=== PATIENT | female | born 1995 | race Caucasian/White ===

== ENCOUNTER 2021-09-11 14:05 | Emergency (ER) | payer MEDICAID ==
[~2021-09-11] VITALS: Ht 172.7 cm; Wt 86.2 kg
--- NOTE | 2021-09-11 14:40 | NUR ---
ER in triage examining patient.
[2021-09-11 15:07] VITALS: BP_SYST 131
--- NOTE | 2021-09-11 15:13 | NUR ---
Triaged pt and placed in waiting room until bed becomes available. Pt c/o vaginal bleeding and abdominal pain x3 months. Rates abdominal pain 10/10 intermittent. Pt is A&Ox4. Skin intact. VSS. Ambulatory with steady gait coming from home. No chest pain and no sob. Denies n/v. NKA. No known medical conditions.
[2021-09-11 15:21] LABS: BASOPHILS % (AUTO) 1.2 % (0.0-2.0); EOSINOPHILS % (AUTO) 1.1 % (0.0-4.0); HEMATOCRIT 41.7 % (36-48); HEMOGLOBIN 14.1 g/dL (12.0-16.0); LYMPHOCYTES # (AUTO) 0.9 K/uL (1.0-5.5); LYMPHOCYTES % (AUTO) 25.3 % (20.5-51.5); MEAN CORPUSCULAR HEMOGLOBIN 31 pg (27-31); MEAN CORPUSCULAR HGB CONC 34 % (32-36); MEAN CORPUSCULAR VOLUME 92 fL (79.0-98.0); MONOCYTES # (AUTO) 0.3 K/uL (0.0-1.0); MONOCYTES % (AUTO) 7.6 % (1.7-9.3); NEUTROPHILS # (AUTO) 2.4 K/uL (1.8-7.7); NEUTROPHILS % (AUTO) 64.8 % (40.0-70.0); PLATELET COUNT (AUTO) 223 K/uL (130-430); RED BLOOD CELL COUNT(AUTO) 4.55 MIL/uL (4.2-6.2); RED CELL DISTRIBUTION WIDTH 12.3 % (9.0-15.0); WHITE BLOOD COUNT (AUTO) 3.7 K/uL (4.8-10.8)
[2021-09-11 15:32] LABS: CREATININE 0.75 mg/dL (0.55-1.30); POTASSIUM 3.8 mmol/L (3.5-5.1)
--- NOTE | 2021-09-11 15:37 | NUR ---
Urine collected and sent to lab.
--- NOTE | 2021-09-11 15:39 | NUR ---
Urine done and results were positive.
[2021-09-11 15:44] LABS: ALBUMIN 3.1 g/dL (3.4-4.8); TOTAL BILIRUBIN 0.5 mg/dL (0.0-1.0)
[2021-09-11 15:51] LABS: BILIRUBIN,URINE NEGATIVE (NEGATIVE); BLOOD, URINE 3+ (NEGATIVE); CLARITY/URINE CLEAR (CLEAR); COLOR,URINE YELLOW (YELLOW); GLUCOSE,URINE NEGATIVE (NEGATIVE); KETONES,URINE NEGATIVE (NEGATIVE); LEUKOCYTE ESTERASE ,URINE TRACE (NEGATIVE); NITRITE, URINE NEGATIVE (NEGATIVE); PROTEIN URINE NEGATIVE (NEGATIVE); UROBILINOGEN,URINE 0.2 (0.2-1.0)
[2021-09-11 16:03] LABS: BACTERIA,URINE FEW /HPF (None Seen); MUCUS,URINE None Seen /LPF (None Seen); RBC,URINE NONE SEEN /HPF (0-3)
[2021-09-11] MEDS ORDERED: cephALEXin 500 MG CAPSULE PO ONE ×2 (16:15→17:15)
[2021-09-11] MEDS ORDERED: CEPH-548 PO (19:01)
[2021-09-11 19:15] VITALS: BP_SYST 131
--- NOTE | 2021-09-11 19:15 | NUR ---
Patient given written and verbal discharge instructions and verbalizes understanding. ER Dr. Landa discussed with patient the results and treatment provided. Patient in stable condition. ID arm band removed. Rx of cephalexin given. Patient educated on pain management and to follow up with PMD. Pain Scale 0. Opportunity for questions provided and answered. Medication side effect fact sheet provided.
== END 2021-09-11 19:15 | disposition home or self-care (01) ==
LOC: SED 14:05
DX: O23.41 Unspecified infection of urinary tract in pregnancy, first trimester (principal); N39.0 Urinary tract infection, site not specified; I10 Essential (primary) hypertension; Z3A.09 9 weeks gestation of pregnancy; Z79.899 Other long term (current) drug therapy
CPT/HCPCS: 36415; 76856-TC; 80053; 81000; 81025; 83690; 84702; 85025; 86886; 86900; 86901; 99284

== ENCOUNTER 2022-03-12 22:25 | Inpatient (IN) | payer MEDICAID ==
[~2022-03-12] VITALS: Ht 172.7 cm; Wt 90.7 kg
[~2022-03-12 22:25] MED LIST: CEPH-548 PO
[2022-03-12 22:35] VITALS: BP_SYST 151
[2022-03-12] MEDS ORDERED: ONDANSETRON 4 MG ODT TAB PO ONE (23:30)
[2022-03-12] MEDS ORDERED: MORPHINE 4 MG INJ. 4 MG/ML VIAL IM ONE (23:30)
[2022-03-13] MEDS ORDERED: NACL 0.9% 1,000 ML IV ONE (01:45)
[2022-03-13] MEDS ORDERED: ONDANSETRON HCL 4 MG/2 ML VIAL IVP ONE (01:45)
[2022-03-13] MEDS ORDERED: MORPHINE 4 MG INJ. 4 MG/ML VIAL IVP ONE (01:45)
[2022-03-13 03:12] LABS: BASOPHILS % (AUTO) 0.6 % (0.0-2.0); EOSINOPHILS % (AUTO) 0.2 % (0.0-4.0); HEMATOCRIT 40.8 % (36-48); HEMOGLOBIN 14.3 g/dL (12.0-16.0); LYMPHOCYTES # (AUTO) 1.6 K/uL (1.0-5.5); LYMPHOCYTES % (AUTO) 23.4 % (20.5-51.5); MEAN CORPUSCULAR HEMOGLOBIN 32 pg (27-31); MEAN CORPUSCULAR HGB CONC 35 % (32-36); MEAN CORPUSCULAR VOLUME 92 fL (79.0-98.0); MONOCYTES # (AUTO) 0.6 K/uL (0.0-1.0); MONOCYTES % (AUTO) 8.9 % (1.7-9.3); NEUTROPHILS # (AUTO) 4.6 K/uL (1.8-7.7); NEUTROPHILS % (AUTO) 66.9 % (40.0-70.0); PLATELET COUNT (AUTO) 196 K/uL (130-430); RED BLOOD CELL COUNT(AUTO) 4.43 MIL/uL (4.2-6.2); RED CELL DISTRIBUTION WIDTH 12.2 % (9.0-15.0); WHITE BLOOD COUNT (AUTO) 6.9 K/uL (4.8-10.8)
[2022-03-13 03:27] LABS: CALCIUM 8.9 mg/dL (8.4-11.0); CREATININE 0.56 mg/dL (0.55-1.30)
[2022-03-13 03:31] LABS: ALBUMIN 3.6 g/dL (3.4-4.8); TOTAL BILIRUBIN 0.9 mg/dL (0.0-1.0)
[2022-03-13 03:39] LABS: PROTHROMBIN TIME 10.4 SECS (9.5-12.5)
[2022-03-13] MEDS ORDERED: MORPHINE 4 MG INJ. 4 MG/ML VIAL ONE (04:33)
[2022-03-13] MEDS ORDERED: ONDANSETRON HCL 4 MG/2 ML VIAL ONE (04:33)
[2022-03-13] MEDS ORDERED: D5NS 1,000 ML IV ONE (05:00)
[2022-03-13] MEDS ORDERED: ONDANSETRON HCL 4 MG/2 ML VIAL IVP PRN ×3 (05:00→17:15)
[2022-03-13] MEDS ORDERED: MORPHINE 2 MG/ML INJ. SYRINGE IVP PRN ×3 (05:00→08:15)
[2022-03-13 05:50] LABS: HCG,QUAL RESULT NEGATIVE (NEGATIVE)
[2022-03-13] MEDS ORDERED: MUPIROCIN 2% TOPICAL OINTMENT 22 GM NS PRN (08:15)
[2022-03-13] MEDS ORDERED: POTASSIUM CHLORIDE 20 MEQ TAB.PRT.SR PO PRN (08:15)
[2022-03-13] MEDS ORDERED: MAGNESIUM SULFATE 50 ML IV PRN (08:15)
[2022-03-13] MEDS ORDERED: DOCUSATE SODIUM 100 MG CAPSULE PO PRN (08:15)
[2022-03-13] MEDS ORDERED: NALOXONE HCL 0.4 MG/ML AMP (NARCAN) IVP PRN ×2 (08:15)
[2022-03-13] MEDS ORDERED: LORazepam 2 MG/ML VIAL IVP PRN (08:15)
[2022-03-13] MEDS ORDERED: ACETAMINOPHEN 325 MG TABLET PO PRN ×2 (08:15)
[2022-03-13] MEDS ORDERED: ZOLPIDEM TARTRATE 5 MG TABLET PO PRN (08:15)
[2022-03-13 09:03] VITALS: BP_SYST 126
[2022-03-13 09:43] VITALS: BP_SYST 126
[2022-03-13 10:43] LABS: BILIRUBIN,URINE NEGATIVE (NEGATIVE); BLOOD, URINE NEGATIVE (NEGATIVE); CLARITY/URINE CLEAR (CLEAR); COLOR,URINE YELLOW (YELLOW); GLUCOSE,URINE NEGATIVE (NEGATIVE); KETONES,URINE TRACE (NEGATIVE); LEUKOCYTE ESTERASE ,URINE NEGATIVE (NEGATIVE); NITRITE, URINE NEGATIVE (NEGATIVE); PROTEIN URINE NEGATIVE (NEGATIVE); UROBILINOGEN,URINE 0.2 (0.2-1.0)
[2022-03-13 12:00] VITALS: BP_SYST 143
[2022-03-13 16:00] VITALS: BP_SYST 118
[2022-03-13] MEDS ORDERED: fentaNYL CITRATE/PF 100 MCG/2 ML AMP IVP PRN ×2 (17:15)
[2022-03-13] MEDS ORDERED: METOCLOPRAMIDE HCL 10 MG/2 ML VIAL IVP PRN (17:15)
[2022-03-13] MEDS ORDERED: NS IRRIG SOLN 1000 ML IR ONE (19:00)
[2022-03-13] MEDS ORDERED: PROPOFOL 200MG/ 20ML VIAL (DIPRIVAN) IV ONE (19:00)
[2022-03-13] MEDS ORDERED: BUPIVACAINE /PF 0.5% 30 ML VIAL ONE (19:00)
[2022-03-13] MEDS ORDERED: LR 1,000 ML IV.SOLN IV ONE (19:00)
[2022-03-13] MEDS ORDERED: MIDAZOLAM HCL 5 MG/ML VIAL (VERSED) IV ONE (19:00)
[2022-03-13] MEDS ORDERED: CEFAZOLIN 2 GM IVPB PREMIX 50 ML IV ONE (19:00)
[2022-03-13] MEDS ORDERED: DOCU-144 PO (19:06)
[2022-03-13] MEDS ORDERED: IBUP-1971 PO (19:06)
[2022-03-13] MEDS ORDERED: HYDR-3917 PO (19:06)
[2022-03-13] MEDS ORDERED: ASPI-1393 PO (19:06)
[2022-03-13 20:00] VITALS: BP_SYST 125
[2022-03-13] MEDS: MORPHINE 2 MG/ML INJ. SYRINGE IVP PRN (23:30)
[2022-03-14 01:23] VITALS: BP_SYST 126
[2022-03-14] MEDS: MORPHINE 2 MG/ML INJ. SYRINGE IVP PRN ×2 (06:22→09:28)
[2022-03-14 07:05] LABS: BASOPHILS % (AUTO) 0.3 % (0.0-2.0); HEMATOCRIT 39.2 % (36-48); HEMOGLOBIN 13.7 g/dL (12.0-16.0); LYMPHOCYTES # (AUTO) 0.6 K/uL (1.0-5.5); MEAN CORPUSCULAR HEMOGLOBIN 32 pg (27-31); MEAN CORPUSCULAR HGB CONC 35 % (32-36); MEAN CORPUSCULAR VOLUME 92 fL (79.0-98.0); MONOCYTES # (AUTO) 0.6 K/uL (0.0-1.0); MONOCYTES % (AUTO) 8.3 % (1.7-9.3); NEUTROPHILS # (AUTO) 5.9 K/uL (1.8-7.7); NEUTROPHILS % (AUTO) 82.4 % (40.0-70.0); PLATELET COUNT (AUTO) 155 K/uL (130-430); RED BLOOD CELL COUNT(AUTO) 4.27 MIL/uL (4.2-6.2); RED CELL DISTRIBUTION WIDTH 12.3 % (9.0-15.0); WHITE BLOOD COUNT (AUTO) 7.1 K/uL (4.8-10.8)
[2022-03-14 07:42] VITALS: BP_SYST 142
[2022-03-14 08:20] LABS: CALCIUM 8.7 mg/dL (8.4-11.0); CREATININE 0.59 mg/dL (0.55-1.30)
[2022-03-14 11:21] VITALS: BP_SYST 129
[2022-03-14] MEDS ORDERED: HYDROcodone/ACETAMIN 10-325 MG TAB PO PRN (11:45)
[2022-03-14 16:22] VITALS: BP_SYST 124
[2022-03-14 18:41] VITALS: BP_SYST 133
[2022-03-14 20:25] VITALS: BP_SYST 125
[2022-03-15] MEDS ORDERED: ASPIRIN 81 MG TABLET(ECOTRIN) PO SCH (09:00)
== END 2022-03-14 20:15 | disposition home health service (06) | DRG 313 ==
LOC: SED 22:25 → SMU 03-13 04:50
PROVIDERS: ADMIT General Practice; ATTEND General Practice
PROC: 0QSH04Z Reposition Left Tibia with Internal Fixation Device, Open Approach (ICD-10-PCS; 2022-03-13)
PROC: BW1C1ZZ Fluoroscopy of Lower Extremity using Low Osmolar Contrast (ICD-10-PCS; 2022-03-13)
PROC: 0QSK04Z Reposition Left Fibula with Internal Fixation Device, Open Approach (ICD-10-PCS; principal; 2022-03-13 16:25)
PROC: 2W3RX1Z Immobilization of Left Lower Leg using Splint (ICD-10-PCS; 2022-03-14)
DX: S82.872A Displaced pilon fracture of left tibia, initial encounter for closed fracture (principal); R65.10 Systemic inflammatory response syndrome (SIRS) of non-infectious origin without acute organ dysfunction; S82.402A Unspecified fracture of shaft of left fibula, initial encounter for closed fracture; F17.290 Nicotine dependence, other tobacco product, uncomplicated; S82.852A Displaced trimalleolar fracture of left lower leg, initial encounter for closed fracture; G40.909 Epilepsy, unspecified, not intractable, without status epilepticus; Z20.822 Contact with and (suspected) exposure to COVID-19; Y93.01 Activity, walking, marching and hiking; W01.0XXA Fall on same level from slipping, tripping and stumbling without subsequent striking against object, initial encounter; Z79.2 Long term (current) use of antibiotics; Z79.899 Other long term (current) drug therapy; Y92.89 Other specified places as the place of occurrence of the external cause; Y99.8 Other external cause status
CPT/HCPCS: 1713; 36415; 73700-TC; 76001; 76376; 80048; 80053; 81003; 83036; 83735; 84703; 85025; 85610-TC; 85730-TC; 87081; 96361; 96374; 96375; 96376; 97163-GP; 99285; C1713; C1769; J0690; J2060; J2250; J2270; J2405; J2704; J3490; J7120; Q0162